=== PATIENT | female | born 1995 | race Caucasian/White ===

== ENCOUNTER → 2016-05-01 | Outpatient (CLI) | payer OTHER ==
[~2016-05-01] VITALS: Ht 167.6 cm; Wt 76.0 kg
[~2016-05-01] MED LIST: FLINTSTONES M100 MCG PO; IBUPROFEN800 MG PO; PRENATAL TABLE1 EACH PO
[2016-05-01 13:13] VITALS: BP 136/64
== END | disposition home or self-care (01) ==
LOC: IVINF 13:00
DX: O36.0990 Maternal care for other rhesus isoimmunization, unspecified trimester, not applicable or unspecified (principal); Z3A.00 Weeks of gestation of pregnancy not specified
CPT/HCPCS: 96372; J2790

== ENCOUNTER 2016-06-09 02:24 | Inpatient (IN) | payer OTHER ==
[~2016-06-09] VITALS: Ht 170.2 cm; Wt 78.0 kg
[2016-06-09] VITALS (10 sets, daily range): BP systolic 111–120; BP diastolic 55–79
[2016-06-10 04:59] LABS: EOSINOPHIL (%) 2.6 % (0-5); EOSINOPHIL COUNT 0.3 K/uL (0-0.3); HEMATOCRIT 33.1 % (36.0-46.0); IMMATURE GRANULOCYTE (%) 0.4 % (0.0-0.7); IMMATURE GRANULOCYTE COUNT 0.1 K/uL; INSTRUMENT ABS NEUTROPHIL CT 7.3 K/uL; LYMPHOCYTE COUNT 3.8 K/uL (1.0-2.8); MCH 29.1 PG (29.0-34.0); MCHC 33.5 G/DL (30.0-36.0); MCV 86.9 FL (83-99); MEAN PLAT.VOLUME 11.4 uM^3 (9.5-12.4); MONOCYTE (%) 6.1 % (3-12); MONOCYTE COUNT 0.8 K/uL (0-0.8); NEUTROPHIL (%) 59.8 % (45-76); NEUTROPHIL COUNT 7.3 K/uL (1.8-6.4); PLATELET COUNT 195 K/uL (156-360); RBC DIS.WIDTH-CV 12.9 % (11.8-14.6); RBC DIS.WIDTH-SD 40.5 % (39-53); RED BLOOD COUNT 3.81 M/uL (3.80-5.20); WHITE BLOOD COUNT 12.3 K/uL (4.1-10.2)
[2016-06-10 07:55] VITALS: BP 115/65
[2016-06-10 15:24] VITALS: BP 101/64
[2016-06-10] MEDS ORDERED: IBUPROFEN800 MG PO (19:44)
== END 2016-06-10 20:30 | disposition home or self-care (01) | DRG 775 ==
LOC: LDRP-OP 02:24 → 2WEST 02:25
PROVIDERS: Advanced Practice Midwife
DX: O62.3 Precipitate labor (principal); Z3A.40 40 weeks gestation of pregnancy; Z37.0 Single live birth
CPT/HCPCS: 83030; 85025; 86850; 86870; 86900; 86901; J2590; J2790

== ENCOUNTER 2017-01-27 21:13 | Emergency (ER) | payer OTHER ==
[~2017-01-27] VITALS: Ht 170.2 cm; Wt 74.0 kg
[2017-01-27 23:33] VITALS: BP 125/69
== END 2017-01-27 23:33 | disposition home or self-care (01) ==
LOC: EME 21:13
DX: S83.91XA Sprain of unspecified site of right knee, initial encounter (principal); W18.39XA Other fall on same level, initial encounter; Y93.01 Activity, walking, marching and hiking; F17.200 Nicotine dependence, unspecified, uncomplicated
CPT/HCPCS: 73564; 99281; 99283